=== PATIENT | male | born 1990 | race Caucasian/White ===

== ENCOUNTER 2017-02-15 08:32 | Emergency (ER) | payer MEDICAID ==
[~2017-02-15] VITALS: Ht 175.3 cm; Wt 78.0 kg
[2017-02-15 10:02] VITALS: BP 120/64
== END 2017-02-15 10:02 | disposition home or self-care (01) ==
LOC: ED 08:32
DX: L91.0 Hypertrophic scar (principal); L29.9 Pruritus, unspecified; Z88.6 Allergy status to analgesic agent